=== PATIENT | female | born 1970 | race Caucasian/White ===

== ENCOUNTER 2017-10-06 04:56 | Emergency (ER) | payer OTHER ==
[~2017-10-06] VITALS: Ht 172.7 cm; Wt 71.6 kg
[~2017-10-06 04:56] MED LIST: NAPROSYN500 MG PO; ZOFRAN4 MG PO
[2017-10-06 05:20] LABS: APPEARANCE CLOUDY ((CLEAR)); BILIRUBIN NEGATIVE; BLOOD LARGE; COLOR AMBER ((YELLOW)); GLUCOSE (STRIP) NEGATIVE; KETONES 5; LEUKOCYTES LARGE; NITRITE NEGATIVE; PROTEIN (STRIP) 100; SPECIFIC GRAVITY 1.025 (1.000-1.030); UROBILINOGEN 0.2 MG/DL (0.2-1.0)
[2017-10-06 05:49] LABS: BACTERIA 2+ /HPF; EPITHELIAL CELLS 1+ /HPF; MUCUS 1+ /LPF; RED BLOOD CELLS TNTC /HPF (0-5); UCUL ADDED? YES; WHITE BLOOD CELLS TNTC /HPF (0-5)
[2017-10-06] MEDS ORDERED: KEFLEX500 MG PO (05:55)
[2017-10-06] MEDS ORDERED: PHENAZOPYRIDIN200 MG PO (05:55)
[2017-10-06 06:14] VITALS: BP 119/86
== END 2017-10-06 06:15 | disposition home or self-care (01) ==
LOC: EME 04:56
DX: N39.0 Urinary tract infection, site not specified (principal); B96.20 Unspecified Escherichia coli [E. coli] as the cause of diseases classified elsewhere; Z16.11 Resistance to penicillins; I10 Essential (primary) hypertension
CPT/HCPCS: 81003; 81025; 87077; 87086; 87186